=== PATIENT | female | born 2000 | race Caucasian/White ===

== ENCOUNTER 2021-04-06 11:06 | Emergency (ER) | payer OTHER ==
--- NOTE | 2021-04-06 14:44 | EDPHYS ---
Physician Documentation [facility] Name: Angelica Arciniega Age: 21 yrs Sex: Female : 2000 Arrival Date: 04/06/2021 Time: 11:11 Bed DIS8 Private MD: ED Physician Kodak Winston HPI: 04/06 14:42 This 21 yrs old Female presents to ER via Ambulatory with complaints of Sore Throat. pm1 14:42 The patient presents with sore throat. The patient describes throat pain as raw, pm1 scratchy. Onset: The symptoms/episode began/occurred 1 week(s) ago. Severity of symptoms: in the emergency department the symptoms are unchanged. Modifying factors: The symptoms are alleviated by nothing, the symptoms are aggravated by swallowing, Patient's oral intake status: good. Associated signs and symptoms: Pertinent positives: cough, Pertinent negatives chest pain, fever, shortness of breath. The patient has not recently seen a physician. Presenting to ER with family member that has similar symptoms. 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 - Social history:: Smoking status: Patient denies any tobacco usage or history of. ROS: 14:42 Constitutional: Negative for fever, chills, and weight loss. pm1 14:42 Cardiovascular: Negative for chest pain, palpitations, and edema. 14:42 Abdomen/GI: Negative for abdominal pain, nausea, vomiting, diarrhea, and constipation, Back: Negative for injury and pain, MS/Extremity: Negative for injury and deformity, Skin: Negative for injury, rash, and discoloration, Neuro: Negative for headache, weakness, numbness, tingling, and seizure. 14:42 ENT: Positive for sore throat, Negative for ear pain. 14:42 Respiratory: Positive for cough, Negative for shortness of breath. 14:42 All other systems are negative. Exam: 14:42 Constitutional: This is a well developed, well nourished patient who is awake, alert, pm1 and in no acute distress. 14:42 Head/Face: Normocephalic, atraumatic. 14:42 Abdomen/GI: Soft, non-tender, with normal bowel sounds. No distension or tympany. No guarding or rebound. No evidence of tenderness throughout. Back: No spinal tenderness. No costovertebral tenderness. Full range of motion. Skin: Warm, dry with normal turgor. Normal color with no rashes, no lesions, and no evidence of cellulitis. MS/ Extremity: Pulses equal, no cyanosis. Neurovascular intact. Full, normal range of motion. 14:42 ENT: Mouth: no acute changes, Lips: normal, moist, Oral mucosa: normal, pink and intact, moist, Posterior pharynx: Airway: no evidence of obstruction, Tonsils: bilaterally enlarged, with erythema, no exudate, no ulcerations, peritonsillar mass, is not appreciated. 14:42 Cardiovascular: Exam negative for acute changes, Rate: normal, Rhythm: Pulses: no pulse deficits are appreciated. 14:42 Respiratory: Exam negative for acute changes, respiratory distress, shortness of breath. 14:42 Neuro: Exam negative for acute changes, Orientation: is normal, Mentation: is normal, Motor: moves all fours. Vital Signs: 11:55 BP 133 / 74; Pulse 96; Resp 16; Temp 97.5; Pulse Ox 100% on R/A; Weight 80.74 kg; iw Height 5 ft. 0 in. (152.40 cm); 15:45 BP 151 / 93; Pulse 100; Resp 18 S; Pulse Ox 98% on R/A; al4 11:55 Body Mass Index 34.76 (80.74 kg, 152.40 cm) iw MDM: 13:48 Patient medically screened. [facility] 14:42 Data reviewed: vital signs. Data interpreted: Pulse oximetry: on room air is 100 %. pm1 Interpretation: normal. Counseling: I had a detailed discussion with the patient and/or guardian regarding: the historical points, exam findings, and any diagnostic results supporting the discharge/admit diagnosis, lab results, the need for outpatient follow up, to return to the emergency department if symptoms worsen or persist or if there are any questions or concerns that arise at home. 14:50 ED course: Reports that symptom with her sore throat bothers her the most is headache. pm1 Has been taking ibuprofen and Tylenol [id number] without any relief. However she does have history of migraine/tension headaches prior to current illness. Therefore will attempt to treat with medication she has not taken before, will prescribe Fiorinal. 04/06 11:59 Order name: Strep; Complete Time: 13:48 iw 04/06 12:00 Order name: Group A Streptococcus Rapid Sc; Complete Time: 13:48 EDMS 04/06 13:11 Order name: Throat Culture EDMS Administered Medications: No medications were administered Disposition: 04/07 04:38 Co-signature as Attending Physician, Kodak Winston MD I agree with the assessment and fartun plan of care. Disposition Summary: 04/06/21 14:43 Discharge Ordered Location: Home pm1 Problem: new pm1 Symptoms: have improved pm1 Condition: Stable pm1 Diagnosis - Acute pharyngitis, unspecified pm1 Followup: pm1 - With: Emergency Department - When: As needed - Reason: Worsening of condition Followup: pm1 - With: Private Physician - When: 2 - 3 days - Reason: Recheck today's complaints, Continuance of care, Re-evaluation by your physician Discharge Instructions: - Discharge Summary Sheet pm1 - Pharyngitis pm1 Forms: - Medication Reconciliation Form pm1 - Thank You Letter pm1 - Antibiotic Education pm1 - Prescription Opioid Use pm1 Prescriptions: - [id number] - take 1 tablet by ORAL route every 4-6 hours As needed; 20 tablet; Refills: 0, pm1 Product Selection Permitted Signatures: Dispatcher [employer] EDMS Kodak Winston MD MD cha Williams, Irene, DEXTER RN Te Kaur, ARI FIRE TRUCK DRIVER pm1 Corrections: (The following items were deleted from the chart) 04/06 11:57 11:57 PMHx: Unable to Obtain; [facility]
--- NOTE | 2021-04-06 14:44 | ER ---
Nurse's Notes [facility] Name: Angelica Arciniega Age: 21 yrs Sex: Female : 2000 Arrival Date: 04/06/2021 Time: 11:11 Bed DIS8 Private MD: Diagnosis: Acute pharyngitis, unspecified Presentation: 04/06 11:55 Chief complaint: Patient states: sore throat and cough since Thursday. Coronavirus iw screen: Ebola Screen: Patient negative for fever greater than or equal to 101.5 degrees Fahrenheit, and additional compatible Ebola Virus Disease symptoms Patient denies exposure to infectious person. Patient denies travel to an Ebola-affected area in the 21 days before illness onset. No symptoms or risks identified at this time. Initial Sepsis Screen: Does the patient meet any 2 criteria? No. Patient's initial sepsis screen is negative. Does the patient have a suspected source of infection? No. Patient's initial sepsis screen is negative. Risk Assessment: Do you want to hurt yourself or someone else? Patient reports no desire to harm self or others. Onset of symptoms was April 02, 2021. 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 - Social history:: Smoking status: Patient denies any tobacco usage or history of. Screenin:45 Abuse screen: Denies threats or abuse. Denies injuries from another. Nutritional iw screening: No deficits noted. Tuberculosis screening: No symptoms or risk factors identified. Fall Risk None identified. Assessment: 14:09 General: Appears in no apparent distress. Behavior is calm, cooperative. Respiratory: iw Airway is patent Respiratory effort is even, unlabored, Breath sounds are clear bilaterally. 15:45 General: Appears in no apparent distress. comfortable, Behavior is calm, cooperative. al4 Pain: Pain currently is 4 out of 10 on a pain scale. Pain: Aggravated by swallowing. Neuro: Level of Consciousness is awake, alert, obeys commands, Oriented to person, place, time, situation. Cardiovascular: Capillary refill < 3 seconds Patient's skin is warm and dry. Respiratory: Airway is patent Respiratory effort is even, unlabored. GI: No signs and/or symptoms were reported involving the gastrointestinal system. : No signs and/or symptoms were reported regarding the genitourinary system. EENT: Throat is pink. Derm: No signs and/or symptoms reported regarding the dermatologic system. Musculoskeletal: No signs and/or symptoms reported regarding the musculoskeletal system. Vital Signs: 11:55 BP 133 / 74; Pulse 96; Resp 16; Temp 97.5; Pulse Ox 100% on R/A; Weight 80.74 kg; iw Height 5 ft. 0 in. (152.40 cm); 15:45 BP 151 / 93; Pulse 100; Resp 18 S; Pulse Ox 98% on R/A; al4 11:55 Body Mass Index 34.76 (80.74 kg, 152.40 cm) iw ED Course: 11:11 Patient arrived in ED. ds1 11:57 Triage completed. iw 13:48 Te Kaur NP is PHCP. pm1 13:48 Kodak Winston MD is Attending Physician. pm1 14:09 Ailin Friedman RN is Primary Nurse. iw 15:40 Arm band placed on. al4 15:44 No provider procedures requiring assistance completed. Patient did not have IV access iw during this emergency room visit. 15:45 Arm band placed on right wrist. iw 15:45 Patient has correct armband on for positive identification. al4 Administered Medications: No medications were administered Outcome: 14:43 Discharge ordered by MD. pm1 15:45 Discharged to home ambulatory. iw 15:45 Condition: good 15:45 Discharge instructions given to patient, Instructed on discharge instructions, follow up and referral plans. Demonstrated understanding of instructions, follow-up care, Prescriptions given X 1. 15:45 Patient left the ED. iw Signatures: Magn[place] Eugene ds1 Ailin Friedman RN RN iw Te Kaur NP CLARIFYING PLANT OPERATOR pm1 Alvaro Grimm al4 Corrections: (The following items were deleted from the chart) 11:57 11:55 Pulse 103bpm; Resp 16bpm; Pulse Ox 100% RA; Temp 97.5F; 80.74 kg; Height 5 ft. 0 iw in.; BMI: 34.7; iw 11:57 11:57 PMHx: Unable to Obtain; iw iw 18:24 18:23 Patient has correct armband on for positive identification. al4 al4
[2021-04-06 15:53] VITALS: BP 133/74; TEMP 97.5; O2SAT 100
== END 2021-04-06 15:45 | disposition home or self-care (01) ==
LOC: ER 11:06
DX: J02.9 Acute pharyngitis, unspecified (principal); Z20.822 Contact with and (suspected) exposure to COVID-19
CPT/HCPCS: 87070; 87081; 99282; U0003